=== PATIENT | male | born 2000 | race Hispanic/Latino ===

== ENCOUNTER 2023-02-11 21:55 | Emergency (ER) | payer MEDICAID, OTHER ==
[~2023-02-11] VITALS: Ht 180.3 cm; Wt 72.6 kg
[2023-02-11] MEDS ORDERED: HYDROMORPHONE 1 MG INJ IVP ONE (22:30)
[2023-02-11] MEDS ORDERED: PROPOFOL 10 MG/ML 20ML VIAL IV SCH (22:30)
[2023-02-11] MEDS ORDERED: IBUP-1493 PO (23:19)
[2023-02-11 23:32] VITALS: BP 129/66
== END 2023-02-11 23:45 | disposition home or self-care (01) ==
LOC: EDH 21:55
DX: S43.084A Other dislocation of right shoulder joint, initial encounter (principal); S00.83XA Contusion of other part of head, initial encounter; W01.0XXA Fall on same level from slipping, tripping and stumbling without subsequent striking against object, initial encounter; Y93.69 Activity, other involving other sports and athletics played as a team or group; Y92.89 Other specified places as the place of occurrence of the external cause; Y99.8 Other external cause status
CPT/HCPCS: 99285; 70450; 23650; 96374; 96375; 73030 ×2; 70486; J1170; J2704